=== PATIENT | male | born 1960 | race Caucasian/White ===

== ENCOUNTER 2021-09-09 14:25 | Emergency (ER) | payer OTHER ==
[~2021-09-09] VITALS: Ht 180.3 cm; Wt 68.0 kg
[2021-09-09] MEDS ORDERED: INVEGA SUSTENN234 MG IM (15:15)
== END 2021-09-09 17:46 | disposition home or self-care (01) ==
LOC: ED 14:25
DX: Z00.8 Encounter for other general examination (principal)

== ENCOUNTER 2022-07-05 19:48 | Emergency (ER) | payer OTHER ==
[~2022-07-05 19:48] MED LIST: INVEGA SUSTENN234 MG IM
[2022-07-05 20:50] LABS: BILIRUBIN Negative (Negative); BLOOD Negative (Negative); CLARITY Clear (Clear); COLOR Yellow (Yellow); GLUCOSE Negative (Negative); KETONE Negative (Negative); LEUKO ESTERASE Negative (Negative); NITRITE Negative (Negative); PH 7.5 (4.5-8.0)
[2022-07-05 20:58] LABS: URINE AMPHETAMINES < 1000 (1000ng/ml); URINE BARBITURATES < 200 (200ng/ml); URINE BENZODIAZEPINES < 200 (200ng/ml); URINE CANNABINOIDS (THC) < 50 (50ng/ml); URINE COCAINE < 300 (300ng/ml); URINE METHADONE < 300 (300ng/ml); URINE OPIATES < 300 (300ng/ml); URINE PHENCYCLIDINE < 25 (25ng/ml)
[2022-07-05 21:01] LABS: BACTERIA TRACE; WBC 0-2 wbc/hpf (0-5)
== END 2022-07-06 15:37 | disposition home or self-care (01) ==
LOC: ED 19:48
PROVIDERS: Emergency Medicine
DX: J02.9 Acute pharyngitis, unspecified (principal); Z79.899 Other long term (current) drug therapy

== ENCOUNTER 2024-03-23 08:25 | Emergency (ER) | payer OTHER ==
[~2024-03-23] VITALS: Ht 180.3 cm; Wt 72.6 kg
[2024-03-23] MEDS ORDERED: predniSONE 20 MG TAB PO ONE (08:40)
[2024-03-23] MEDS ORDERED: Albuterol Sulfate 2.5 MG/3 ML VIAL NEB ONE (08:40)
[2024-03-23] MEDS ORDERED: AZITHROMYCIN 250 MG TAB PO ONE (08:45)
[2024-03-23] MEDS ORDERED: AVPAK AZITHROM250 M1 PO (08:52)
[2024-03-23] MEDS ORDERED: VENT7GM INH (08:52)
[2024-03-23] MEDS ORDERED: PREDNISONE20 M1 PO (08:52)
== END 2024-03-23 09:20 | disposition home or self-care (01) ==
LOC: ED 08:25
DX: J44.1 Chronic obstructive pulmonary disease with (acute) exacerbation (principal); F31.9 Bipolar disorder, unspecified; F17.290 Nicotine dependence, other tobacco product, uncomplicated

== ENCOUNTER 2024-05-21 22:32 | Emergency (ER) | payer OTHER ==
[~2024-05-21] VITALS: Wt 72.6 kg
[~2024-05-21 22:32] MED LIST changes: +AVPAK AZITHROM250 M1 PO; +PREDNISONE20 M1 PO; +VENT7GM INH
[2024-05-21] MEDS ORDERED: Dexamethasone Sodium Phospha 20 MG/5 ML VIAL IV ONE (22:45)
[2024-05-21] MEDS ORDERED: MAGNESIUM SULFATE 50 ML IV ONE (22:45)
[2024-05-21] MEDS ORDERED: Albuterol Sulf/Ipratropium 3 ML VIAL NEB ONE (22:45)
[2024-05-21 23:10] LABS: BASO # 0.1 10*3/uL (0.0-0.1); BASO % 0.7 % (0.0-1.0); EOS # 0.6 10*3/uL (0.0-0.4); LYMPH # 4.9 10*3/uL (1.3-4.4); LYMPH % 39.6 % (27.0-41.0); MEAN CELL VOLUME 87.4 fl (80.0-94.0); MEAN CORPUSCULAR HGB 29.9 pg (27.0-31.0); MEAN CORPUSCULAR HGB CONC 34.1 g/dl (33.0-37.0); MEAN PLATELET VOLUME 9.2 fl (9.6-12.3); MONO # 0.9 10*3/uL (0.1-1.0); MONO % 7.3 % (3.0-9.0); NEUT # 5.8 10*3/uL (2.3-7.9); NEUT % 46.8 % (47.0-73.0); PLATELET COUNT AUTOMATED 240 10*3/uL (130-400); RED BLOOD COUNT 4.69 10*6/uL (4.50-5.90); RED CELL DISTRI WIDTH 13.1 % (0-14.5); WHITE BLOOD COUNT 12.4 10*3/uL (4.8-10.8)
[2024-05-21 23:33] LABS: ALKALINE PHOSPHATASE 53 U/L (46-116); BUN 17 mg/dl (9-23); CHLORIDE 100 mmol/L (98-107); CPK 42 U/L (34-171); POTASSIUM 4.4 mmol/L (3.4-5.1); SGPT/ALT 17 U/L (5-49); TOTAL PROTEIN 5.9 gm/dL (6.0-8.0)
[2024-05-22] MEDS ORDERED: ALBUTEROL2.5 MG/0.5 INH (00:16)
[2024-05-22] MEDS ORDERED: MEDROL DOSEPAK4 MG PO (00:16)
[2024-05-22] MEDS ORDERED: VIBRAMYCIN HYC100 MG PO (00:16)
== END 2024-05-22 00:55 | disposition home or self-care (01) ==
LOC: ED 22:32
PROVIDERS: Emergency Medicine
DX: J44.1 Chronic obstructive pulmonary disease with (acute) exacerbation (principal); Z20.822 Contact with and (suspected) exposure to COVID-19; F31.9 Bipolar disorder, unspecified; Z87.891 Personal history of nicotine dependence

== ENCOUNTER 2024-06-05 18:39 | Emergency (ER) | payer OTHER ==
[~2024-06-05] VITALS: Ht 180.3 cm; Wt 72.6 kg
[~2024-06-05 18:39] MED LIST changes: +ALBUTEROL2.5 MG/0.5 INH; +MEDROL DOSEPAK4 MG PO; +VIBRAMYCIN HYC100 MG PO
[2024-06-05] MEDS ORDERED: Albuterol Sulf/Ipratropium 3 ML VIAL NEB ONE (18:55)
[2024-06-05] MEDS ORDERED: methylPREDNISolone sod succ 125 MG VIAL IV ONE (18:55)
[2024-06-05 19:35] LABS: BASO # 0.1 10*3/uL (0.0-0.1); BASO % 0.7 % (0.0-1.0); EOS # 0.9 10*3/uL (0.0-0.4); EOS % 7.5 % (1.0-4.0); HEMATOCRIT 38.9 % (42.0-52.0); LYMPH # 3.4 10*3/uL (1.3-4.4); LYMPH % 29.2 % (27.0-41.0); MEAN CELL VOLUME 85.9 fl (80.0-94.0); MEAN CORPUSCULAR HGB 29.8 pg (27.0-31.0); MEAN CORPUSCULAR HGB CONC 34.7 g/dl (33.0-37.0); MONO % 8.2 % (3.0-9.0); NEUT # 6.3 10*3/uL (2.3-7.9); NEUT % 53.9 % (47.0-73.0); PLATELET COUNT AUTOMATED 304 10*3/uL (130-400); RED BLOOD COUNT 4.53 10*6/uL (4.50-5.90); RED CELL DISTRI WIDTH 12.8 % (0-14.5); WHITE BLOOD COUNT 11.6 10*3/uL (4.8-10.8)
[2024-06-05 20:03] LABS: BUN 6 mg/dl (9-23); CHLORIDE 100 mmol/L (98-107); POTASSIUM 4.1 mmol/L (3.4-5.1)
[2024-06-05] MEDS ORDERED: ALBUTEROL 8 GM INHALER INH ONE (21:40)
[2024-06-05] MEDS ORDERED: ZITHROMAX250 MG PO (21:45)
[2024-06-05] MEDS ORDERED: PREDNISONE20 M1 PO (21:45)
== END 2024-06-05 21:48 | disposition home or self-care (01) ==
LOC: ED 18:39
PROVIDERS: Internal Medicine
DX: J44.1 Chronic obstructive pulmonary disease with (acute) exacerbation (principal); E87.1 Hypo-osmolality and hyponatremia; F31.9 Bipolar disorder, unspecified

== ENCOUNTER 2024-06-23 08:19 | Emergency (ER) | payer OTHER ==
[~2024-06-23] VITALS: Ht 180.3 cm; Wt 72.6 kg
[~2024-06-23 08:19] MED LIST changes: +ZITHROMAX250 MG PO
[2024-06-23] MEDS ORDERED: SODIUM CHLORIDE 0.9% 1,000 ML IV ONE (08:40)
[2024-06-23] MEDS ORDERED: diphenhydrAMINE hydrochloride 50 MG/ML VIAL IV ONE (08:40)
[2024-06-23] MEDS ORDERED: Metoclopramide Hydrochloride 10 MG/2 ML AMP IV ONE (08:40)
[2024-06-23] MEDS ORDERED: Ketorolac Tromethamine 15 MG/ML VIAL IV ONE (08:40)
[2024-06-23] MEDS ORDERED: Metoclopramide Hydrochloride 5 MG TAB PO ONE (08:50)
[2024-06-23] MEDS ORDERED: IBUPROFEN 800 MG TAB PO ONE (08:50)
[2024-06-23] MEDS ORDERED: diphenhydrAMINE hydrochloride 25 MG CAP PO ONE (08:50)
[2024-06-23 08:55] LABS: BASO # 0.1 10*3/uL (0.0-0.1); BASO % 0.4 % (0.0-1.0); EOS # 0.2 10*3/uL (0.0-0.4); HEMATOCRIT 38.4 % (42.0-52.0); LYMPH # 1.9 10*3/uL (1.3-4.4); LYMPH % 16.2 % (27.0-41.0); MEAN CELL VOLUME 85.5 fl (80.0-94.0); MEAN CORPUSCULAR HGB 29.8 pg (27.0-31.0); MEAN CORPUSCULAR HGB CONC 34.9 g/dl (33.0-37.0); MEAN PLATELET VOLUME 8.9 fl (9.6-12.3); MONO # 1.2 10*3/uL (0.1-1.0); MONO % 10.1 % (3.0-9.0); NEUT # 8.4 10*3/uL (2.3-7.9); NEUT % 70.8 % (47.0-73.0); PLATELET COUNT AUTOMATED 267 10*3/uL (130-400); RED BLOOD COUNT 4.49 10*6/uL (4.50-5.90); WHITE BLOOD COUNT 11.8 10*3/uL (4.8-10.8)
[2024-06-23 09:15] LABS: BUN 5 mg/dl (9-23); CHLORIDE 97 mmol/L (98-107); POTASSIUM 3.8 mmol/L (3.4-5.1)
[2024-06-23] MEDS ORDERED: LEVOFLOXACIN 750 MG TAB PO ONE (09:15)
[2024-06-23] MEDS ORDERED: LEVOFLOXACIN750 M2 PO (09:41)
== END 2024-06-23 10:29 | disposition home or self-care (01) ==
LOC: ED 08:19
PROVIDERS: Emergency Medicine
DX: J18.9 Pneumonia, unspecified organism (principal); Z20.822 Contact with and (suspected) exposure to COVID-19; E87.1 Hypo-osmolality and hyponatremia; F31.9 Bipolar disorder, unspecified

== ENCOUNTER 2024-08-01 08:21 | Emergency (ER) | payer OTHER ==
[~2024-08-01] VITALS: Ht 180.3 cm; Wt 72.6 kg
[~2024-08-01 08:21] MED LIST changes: +LEVOFLOXACIN750 M2 PO
[2024-08-01] MEDS ORDERED: Metoclopramide Hydrochloride 5 MG TAB PO ONE (08:30)
[2024-08-01] MEDS ORDERED: diphenhydrAMINE hydrochloride 25 MG CAP PO ONE (08:30)
[2024-08-01] MEDS ORDERED: IBUPROFEN 600 MG TAB PO ONE (08:35)
[2024-08-01] MEDS ORDERED: Albuterol Sulfate 2.5 MG/3 ML VIAL NEB ONE (08:35)
[2024-08-01 08:55] LABS: BASO # 0.1 10*3/uL (0.0-0.1); BASO % 0.6 % (0.0-1.0); EOS # 0.5 10*3/uL (0.0-0.4); EOS % 5.2 % (1.0-4.0); HEMATOCRIT 40.3 % (42.0-52.0); MEAN CORPUSCULAR HGB 29.3 pg (27.0-31.0); MEAN CORPUSCULAR HGB CONC 34.5 g/dl (33.0-37.0); MEAN PLATELET VOLUME 9.4 fl (9.6-12.3); MONO # 0.7 10*3/uL (0.1-1.0); MONO % 7.3 % (3.0-9.0); NEUT # 5.3 10*3/uL (2.3-7.9); NEUT % 57.5 % (47.0-73.0); PLATELET COUNT AUTOMATED 241 10*3/uL (130-400); RED BLOOD COUNT 4.74 10*6/uL (4.50-5.90); RED CELL DISTRI WIDTH 12.1 % (0-14.5); WHITE BLOOD COUNT 9.2 10*3/uL (4.8-10.8)
[2024-08-01 09:13] LABS: BUN 10 mg/dl (9-23); CHLORIDE 97 mmol/L (98-107); POTASSIUM 3.8 mmol/L (3.4-5.1)
[2024-08-01] MEDS ORDERED: predniSONE 20 MG TAB PO ONE (10:20)
[2024-08-01] MEDS ORDERED: PREDNISONE20 M1 PO (10:27)
== END 2024-08-01 13:55 | disposition home or self-care (01) ==
LOC: ED 08:21
PROVIDERS: Emergency Medicine
DX: B34.9 Viral infection, unspecified (principal); Z20.822 Contact with and (suspected) exposure to COVID-19; F17.200 Nicotine dependence, unspecified, uncomplicated; Z79.2 Long term (current) use of antibiotics

== ENCOUNTER 2024-09-29 00:21 | Emergency (ER) | payer OTHER ==
[~2024-09-29] VITALS: Ht 180.3 cm; Wt 73.5 kg
[2024-09-29 00:35] LABS: BASO % 0.3 % (0.0-1.0); EOS # 0.3 10*3/uL (0.0-0.4); EOS % 2.3 % (1.0-4.0); HEMATOCRIT 40.2 % (42.0-52.0); MEAN CELL VOLUME 82.9 fl (80.0-94.0); MEAN CORPUSCULAR HGB 29.1 pg (27.0-31.0); MEAN CORPUSCULAR HGB CONC 35.1 g/dl (33.0-37.0); MEAN PLATELET VOLUME 9.6 fl (9.6-12.3); MONO # 1.3 10*3/uL (0.1-1.0); MONO % 9.8 % (3.0-9.0); NEUT % 66.9 % (47.0-73.0); PLATELET COUNT AUTOMATED 223 10*3/uL (130-400); RED BLOOD COUNT 4.85 10*6/uL (4.50-5.90); RED CELL DISTRI WIDTH 12.6 % (0-14.5); WHITE BLOOD COUNT 13.5 10*3/uL (4.8-10.8)
[2024-09-29 01:07] LABS: BUN 11 mg/dl (9-23); CHLORIDE 93 mmol/L (98-107); POTASSIUM 3.8 mmol/L (3.4-5.1)
[2024-09-29] MEDS ORDERED: SODIUM CHLORIDE 0.9% 1,000 ML IV SCH (01:30)
[2024-09-29] MEDS ORDERED: methylPREDNISolone sod succ 125 MG VIAL IV ONE (02:15)
[2024-09-29] MEDS ORDERED: Albuterol Sulf/Ipratropium 3 ML VIAL NEB ONE (02:15)
[2024-09-29] MEDS ORDERED: AZITHROMYCIN 250 MG TAB PO ONE (02:20)
[2024-09-29] MEDS ORDERED: Ceftriaxone Sodium 1 GM/10 ML SYR IV ONE (02:20)
[2024-09-29] MEDS ORDERED: AVPAK AZITHROM250 MG PO ×2 (02:39→03:12)
[2024-09-29] MEDS ORDERED: MEDROL DOSEPAK4 MG PO ×2 (02:39→03:12)
[2024-09-30] MEDS ORDERED: BENZONATATE100 M1 PO (11:55)
[2024-09-30] MEDS ORDERED: DEPAKOTE500 M2 PO (13:16)
[2024-09-30] MEDS ORDERED: 24 HOUR ALLERG9.9 ML INH (13:17)
[2024-09-30] MEDS ORDERED: MAGNESIUM OXID420 M1 PO (13:18)
[2024-09-30] MEDS ORDERED: MELATONIN3 M3 PO (13:19)
[2024-09-30] MEDS ORDERED: ZYPREXA15 M1 PO (13:19)
[2024-09-30] MEDS ORDERED: STRIVERDI RESPIM4 GM INH (13:20)
[2024-09-30] MEDS ORDERED: PROPRANOLOL HCL10 MG PO (13:25)
== END 2024-09-29 03:08 | disposition home or self-care (01) ==
LOC: ED 00:21
PROVIDERS: Internal Medicine
DX: J44.9 Chronic obstructive pulmonary disease, unspecified (principal); Z20.822 Contact with and (suspected) exposure to COVID-19; Z53.29 Procedure and treatment not carried out because of patient's decision for other reasons; M54.6 Pain in thoracic spine; F31.9 Bipolar disorder, unspecified; Z87.891 Personal history of nicotine dependence

== ENCOUNTER 2024-11-04 09:40 | Emergency (ER) | payer OTHER ==
[~2024-11-04] VITALS: Ht 180.3 cm; Wt 68.0 kg
[~2024-11-04 09:40] MED LIST changes: +24 HOUR ALLERG9.9 ML INH; +AVPAK AZITHROM250 MG PO; +BENZONATATE100 M1 PO; +DEPAKOTE500 M2 PO; +DOXYCYCLINE MO100 MG PO; +LATU40TA PO; +LATU80TA PO; +MAGNESIUM OXID420 M1 PO; +MELATONIN3 M3 PO; +PROPRANOLOL HCL10 MG PO; +STRIVERDI RESPIM4 GM INH; +ZYPREXA15 M1 PO
[2024-11-04] MEDS ORDERED: Albuterol Sulfate 2.5 MG/3 ML VIAL NEB ONE (09:50)
[2024-11-04] MEDS ORDERED: methylPREDNISolone sod succ 125 MG VIAL IV ONE (09:50)
[2024-11-04] MEDS ORDERED: SODIUM CHLORIDE 0.9% 1,000 ML IV ONE (09:50)
[2024-11-04] MEDS ORDERED: Ketorolac Tromethamine 15 MG/ML VIAL IV ONE (09:50)
[2024-11-04 10:02] LABS: BASO # 0.1 10*3/uL (0.0-0.1); BASO % 0.8 % (0.0-1.0); EOS # 0.3 10*3/uL (0.0-0.4); EOS % 4.8 % (1.0-4.0); HEMATOCRIT 34.9 % (42.0-52.0); MEAN CELL VOLUME 84.3 fl (80.0-94.0); MEAN CORPUSCULAR HGB CONC 33.2 g/dl (33.0-37.0); MEAN PLATELET VOLUME 9.1 fl (9.6-12.3); MONO # 0.9 10*3/uL (0.1-1.0); MONO % 12.4 % (3.0-9.0); NEUT # 4.5 10*3/uL (2.3-7.9); NEUT % 63.2 % (47.0-73.0); PLATELET COUNT AUTOMATED 322 10*3/uL (130-400); RED BLOOD COUNT 4.14 10*6/uL (4.50-5.90); RED CELL DISTRI WIDTH 13.8 % (0-14.5); WHITE BLOOD COUNT 7.2 10*3/uL (4.8-10.8)
[2024-11-04 10:21] LABS: BUN 9 mg/dl (9-23); CHLORIDE 94 mmol/L (98-107); POTASSIUM 3.4 mmol/L (3.4-5.1)
== END 2024-11-04 11:47 | disposition home or self-care (01) ==
LOC: ED 09:40
PROVIDERS: Emergency Medicine
DX: J44.1 Chronic obstructive pulmonary disease with (acute) exacerbation (principal); F31.9 Bipolar disorder, unspecified; F17.210 Nicotine dependence, cigarettes, uncomplicated